=== PATIENT | female | born 1950 | race Caucasian/White ===

== ENCOUNTER → 2019-01-04 10:33 | Outpatient (CLI) | payer BC, SELFPAY ==
--- NOTE | 2019-01-04 | DI.RAD.S_ITS ---
PROCEDURE: FL BARIUM SWALLOW INDICATIONS: Gastro-esophageal reflux disease without esophagit COMPARISON: None. FINDINGS: Function: There is normal esophageal peristalsis. There is mild gastroesophageal reflux. There is normal transit of a calibrated barium tablet through the esophagus into the stomach. Morphology: Air-contrast images demonstrate normal mucosal morphology. Single contrast views show no esophageal strictures, extrinsic mass effects, or diverticula. There is a small to moderate-sized sliding hiatal hernia. Limited images of the stomach demonstrate normal appearance. IMPRESSION: 1. Small to moderate sized sliding hiatal hernia. 2. Mild gastroesophageal reflux. Dictated by: Rebekah Ramsey M.D. on 01/04/2019 at 12:00 Approved by: Rebekah Ramsey M.D. on 01/04/2019 at 12:01
== END ==
PROVIDERS: Visit Provider Internal Medicine
DX: K21.9 Gastro-esophageal reflux disease without esophagitis (principal); K44.9 Diaphragmatic hernia without obstruction or gangrene
CPT/HCPCS: 74220

== ENCOUNTER → 2019-01-24 16:37 | Outpatient (CLI) | payer BC, SELFPAY ==
[2019-01-24 17:23] LABS: Fractionated Inspired Oxygen 0.21; HCO3 ABG 26 mmol/L (22-26); Oxygen Saturation ABG 93 % (95-100); PCO2 ABG 38.9 mmHg (35-45); PO2 ABG 65 mmHg (80-100); TCO2 ABG 27 mmol/L (21-31); pH ABG 7.43 (7.35-7.45)
--- NOTE | 2019-02-03 09:00 | PM.PFT.1 ---
Pulmonary Function Test Referral & Results Date Patient Seen: 01/24/19 Requesting provider: Tucker Louise Results: The spirometry demonstrates an FVC of 1.77 L which is 63% of predicted. The FEV1 was measured at 0.73 L which is 34% of predicted. The FEV1/FVC ratio was 41 which is 53% of predicted. Following the administration of bronchodilator there was a 24% improvement in FEV1 and a 54% improvement in FEF 25-75%. Lung volumes show an SVC of 1.8 L which is 69% of predicted. The diffusing capacity was measured at 13.23 which is 61% of predicted. The maximum voluntary ventilation was severely reduced Interpretation: This study demonstrates severe obstructive lung disease with an FEV1 of less than 1 L. There is however evidence of significant benefit following bronchodilator administration as above There is also mild reduction in lung volumes suggesting restrictive lung disease is also present There is also a mild to moderate reduction in diffusing capacity as above.
== END ==
PROVIDERS: Visit Provider Internal Medicine
DX: R06.9 Unspecified abnormalities of breathing (principal)
CPT/HCPCS: 36600; 82805; 94060; 94726; 94729